=== PATIENT | female | born 1990 | race Caucasian/White ===

== ENCOUNTER 2019-09-20 15:14 | Emergency (ER) | payer BC ==
[~2019-09-20] VITALS: Ht 157.5 cm; Wt 55.8 kg
--- NOTE | 2019-09-20 15:25 | NUR ---
JANI LANDERS AT BEDSIDE FOR EVAL.
[2019-09-20] MEDS ORDERED: IV NS 0.9% 1,000 ML BAG IV ONE ×2 (15:30→17:00)
[2019-09-20] MEDS ORDERED: IBUPROFEN 600 MG TABLET PO ONE ×2 (15:30→15:36)
[2019-09-20] MEDS ORDERED: ONDANSETRON HCL/PF 4 MG/2 ML VIAL ONE (15:38)
--- NOTE | 2019-09-20 15:48 | NUR ---
INFLUENZA SWAB SENT TO LAB.
[2019-09-20] MEDS ORDERED: ONDANSETRON HCL/PF 4 MG/2 ML VIAL IV ONE (16:00)
[2019-09-20] MEDS ORDERED: ACETAMINOPHEN ES 500 MG TABLET ONE (16:55)
[2019-09-20] MEDS ORDERED: ACETAMINOPHEN 325 MG TABLET PO ONE (17:00)
--- NOTE | 2019-09-20 17:30 | NUR ---
COOL COMPRESS DONE
--- NOTE | 2019-09-20 18:07 | NUR ---
PATIENT STATED SHE FEELS BETTER, AMBULATORY WITH STEADY GAIT. IV removed. Catheter intact and site benign. Pressure and 4x4 applied to site. No bleeding noted.Patient discharged to home in stable condition. Written and verbal after care instructions given. Patient verbalizes understanding of instruction.
[2019-09-20 18:08] VITALS: BP 122/65
== END 2019-09-20 18:09 | disposition home or self-care (01) ==
LOC: ER 15:14
DX: J06.9 Acute upper respiratory infection, unspecified (principal)
CPT/HCPCS: 87804 ×2; 96374; 99283; J2405; J7030 ×2

== ENCOUNTER 2019-09-21 13:33 | Emergency (ER) | payer BC ==
[~2019-09-21] VITALS: Ht 157.5 cm; Wt 60.3 kg
--- NOTE | 2019-09-21 13:40 | NUR ---
C/O FEVER, SEEN YESTERDAY FOR SAME REASON. ON AUGMENTIN FOR SINUS INFECTION. [employer]. TYLENOL 1G GIVEN AT 1400., PT AAOX4, -SOB, NAD NOTED, VSS, PENDING MD PABLO
[2019-09-21 14:26] LABS: BASOPHILS % (AUTO) 0.1 % (0.0-2.0); HEMATOCRIT 37 % (33-45); HEMOGLOBIN 12.5 g/dL (11.5-14.8); LYMPHOCYTES # (AUTO) 0.5 /CMM (0.8-4.8); LYMPHOCYTES % (AUTO) 4.6 % (20.0-44.0); MEAN CORPUSCULAR HGB CONC 34 g/dl (31.0-36.0); MEAN CORPUSCULAR VOLUME 89 fL (82-100); MONOCYTES # (AUTO) 0.5 /CMM (0.1-1.30); NEUTROPHILS # (AUTO) 9.7 /CMM (1.8-8.9); NEUTROPHILS % (AUTO) 90.3 % (43.0-81.0); PLATELET COUNT (AUTO) 206 /CMM (150-450); RED BLOOD CELL COUNT(AUTO) 4.15 MIL/uL (4.0-5.2); WHITE BLOOD COUNT (AUTO) 10.7 K/uL (4.3-11.0)
[2019-09-21] MEDS ORDERED: IV NS 0.9% 1,000 ML BAG IV ONE (14:30)
[2019-09-21] MEDS ORDERED: ACETAMINOPHEN ES 500 MG TABLET PO ONE (14:30)
[2019-09-21] MEDS ORDERED: IBUPROFEN 600 MG TABLET PO ONE ×3 (14:33→15:00)
[2019-09-21 14:39] LABS: CALCIUM, SERUM 8.7 mg/dL (8.5-10.1); CREATININE 0.7 mg/dL (0.6-1.3); POTASSIUM 3.4 mmol/L (3.5-5.1)
[2019-09-21 14:46] LABS: BILIRUBIN,DIRECT 0.1 mg/dL (0.0-0.2); BILIRUBIN,TOTAL 0.3 mg/dL (0.2-1.0); TOTAL PROTEIN, SERUM 6.9 g/dL (6.4-8.2)
[2019-09-21 14:57] LABS: BILIRUBIN,URINE MODERATE (NEGATIVE); BLOOD, URINE Moderate Ery/uL (NEGATIVE); KETONES,URINE >=160 (NEGATIVE); LEUKOCYTE ESTERASE ,URINE Negative (NEGATIVE); NITRITE, URINE Negative (NEGATIVE); PROTEIN,URINE 100 mg/dl (NEGATIVE); UGLUCOSE Negative (NEGATIVE)
[2019-09-21 15:04] LABS: APPEARANCE,URINE SLIGHTLY HAZY (CLEAR); COLOR,URINE DARK YELLOW (YELLOW)
[2019-09-21 15:07] LABS: MUCUS,URINE Moderate /LPF (None Seen); RBC,URINE 20-40 /HPF (0-2); SQUAMOUS EPITHELIAL CELL,UR Moderate /HPF (None Seen)
[2019-09-21 15:08] LABS: BACTERIA,URINE Rare /HPF (None Seen)
--- NOTE | 2019-09-21 15:55 | NUR ---
Patient discharged to home in stable condition. Written and verbal after care instructions given. Patient verbalizes understanding of instruction. IV removed. Catheter intact and site benign. Pressure and 4x4 applied to site. No bleeding noted.
[2019-09-21 16:02] VITALS: BP 130/75
== END 2019-09-21 16:02 | disposition home or self-care (01) ==
LOC: ER 13:36
DX: J18.9 Pneumonia, unspecified organism (principal)
CPT/HCPCS: 36415; 71045; 80048; 80076; 81001; 83605; 84145; 84703; 85025; 87040 ×2; 87086; 87804 ×2; 99284; J7030; 81000-TC